=== PATIENT | female | born 1990 | race Caucasian/White ===

== ENCOUNTER 2017-08-02 17:00 | Emergency (ER) | payer BC, MEDICAID ==
[2017-08-02 17:17] VITALS: BP 159/91
[2017-08-02] MEDS ORDERED: Sodium Chloride 0.9% 1,000 ML IV SCH (17:45)
--- NOTE | 2017-08-02 17:52 | EDM.PDOC ---
ED HPI GENERAL MEDICAL PROBLEM - General Chief Complaint: General Stated Complaint: SENT BY CLINIC Time Seen by Provider: 08/02/17 17:30 Source of Information: Reports: Patient, Provider History Limitations: Reports: No Limitations - History of Present Illness INITIAL COMMENTS - FREE TEXT/NARRATIVE: 26-year-old female who is very anxious, dyspneic with intermittent chest pressure since delivering her baby one month ago. She's been seen at the clinic a couple of times and everything was felt to be fine, but a d-dimer was drawn today and was elevated at 500, so she was called and told to come to the emergency room to be evaluated for a PE. She is tearful, very anxious and scared. She has no chest pressure at this time. No cough, no hemoptysis. She just doesn't feel right. O2 saturations are 99%, she is tachycardic at 110. An EKG done at the clinic earlier today was normal, that will not be repeated. Onset: Unknown/Unsure Duration: Week(s): (Several weeks) Severity: Moderate Associated Symptoms: Reports: Shortness of Breath, Other (Mild intermittent chest pressure). 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 Denies: Cough Cardiovascular: Reports: Other (Mild intermittent chest pressure) GI/Abdominal: Denies: Nausea, Vomiting Skin: Reports: No Symptoms Psychiatric: Reports: Anxiety ED EXAM, GENERAL - Physical Exam Exam: See Below Exam Limited By: No Limitations General Appearance: Alert, Anxious, Mild Distress (Very tearful, very scared) Head: Atraumatic Neck: Normal Inspection Respiratory/Chest: No Respiratory Distress, Lungs Clear Cardiovascular: Regular Rate, Rhythm, Tachycardia. No: Extra Beats Extremities: No: Pedal Edema Neurological: Alert, Oriented Psychiatric: Anxious, Tearful Skin Exam: Warm, Dry Course - Vital Signs Last Recorded V/S: Last Vital Signs Temp 97.2 F 08/02/17 17:19 Pulse 110 H 08/02/17 17:19 Resp 16 08/02/17 17:19 BP 159/91 H 08/02/17 17:19 Pulse Ox 99 08/02/17 17:19 - Orders/Labs/Meds Orders: Active Orders 24 hr Category Date Time Status Ang Chest [CT] Stat Exams 08/02/17 17:34 Taken Meds: Medications Discontinued Medications Generic Name Dose Route Start Last Admin Trade Name Freq PRN Reason Stop Dose Admin Sodium Chloride 1,000 mls @ 1,000 mls/hr 08/02/17 17:45 08/02/17 17:56 Normal Saline IV 1,000 mls/hr ASDIRECTED TRAVIS Administration Sodium Chloride 100 mls @ 3.5 mls/sec 08/02/17 18:00 08/02/17 18:17 Normal Saline IV 3.5 mls/sec ASDIRECTED TRAVIS Administration Iopamidol 100 ml 08/02/17 18:00 08/02/17 18:17 Isovue-370 (76%) IV 100 ml . DIRECTED TRAVIS Administration - Re-Assessments/Exams Free Text/Narrative Re-Assessment/Exam: 08/02/17 17:51 Labs did not need to be repeated, recent creatinine and GFR were normal. An IV was started, patient was hydrated with 1 L of normal saline and a CT of her chest with IV contrast was obtained for reassurance. I could not convince her that the test will likely be normal, I think she needs this for reassurance. 08/02/17 18:44 CT angiogram was negative. Patient was reassured. Departure - Departure Time of Disposition: 19:17 Disposition: Home, Self-Care 01 Condition: Good Clinical Impression: Atypical chest pain, Anxiety about health - Discharge Information Instructions: Nonspecific Chest Pain Referrals: Liz Grullon NP [Primary Care Provider] - Forms: ED Department Discharge Care Plan Goals: Continue your current medications. Activity as tolerated. Return any time if worsening or concerns. - My Orders Last 24 Hours: My Active Orders 08/02/17 17:34 Ang Chest [CT] Stat - Assessment/Plan Last 24 Hours: My Active Orders 08/02/17 17:34 Ang Chest [CT] Stat
[2017-08-02] MEDS ORDERED: Sodium Chloride 0.9% 100 ML IV SCH (18:00)
[2017-08-02] MEDS ORDERED: Iopamidol 755 Mg/ML 100 ML Bottle IV SCH (18:00)
== END 2017-08-02 19:18 | disposition home or self-care (01) ==
LOC: JP.ED 17:00
DX: R07.89 Other chest pain (principal); F41.9 Anxiety disorder, unspecified; Z88.0 Allergy status to penicillin; Z91.040 Latex allergy status
CPT/HCPCS: 71275; 96360; 99285; J7030; J7040; Q9967

== ENCOUNTER 2019-10-26 00:04 | Emergency (ER) | payer BC, MEDICAID ==
[2019-10-26 00:28] VITALS: BP 128/87; PULSE 117
--- NOTE | 2019-10-26 00:36 | EDM.PDOC ---
ED HPI GENERAL MEDICAL PROBLEM - General Chief Complaint: ENT Problem Stated Complaint: RIGHT EAR INFECTION Time Seen by Provider: 10/26/19 00:31 Source of Information: Reports: Patient, RN Notes Reviewed History Limitations: Reports: No Limitations - History of Present Illness INITIAL COMMENTS - FREE TEXT/NARRATIVE: 28-year-old female presents emergency department today complaint of ear pain she states been going on for couple days she feels full no fevers no drainage Right Ear Pain Score (Numeric/FACES): 8 - Related Data Allergies Allergy/AdvReac Type Severity Reaction Status Date / Time Penicillins Allergy Unknown Cannot Verified 10/26/19 00:16 Remember Latex, Natural Rubber Allergy Rash Verified 10/26/19 00:16 Home Meds: Home Meds NK [No Known Home Meds] 10/26/19 [History] Past Medical History HEENT History: Reports: Allergic Rhinitis Genitourinary History: Reports: Pyelonephritis, UTI, Recurrent 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 Denies: Ear Discharge Respiratory: Reports: No Symptoms Cardiovascular: Reports: No Symptoms GI/Abdominal: Reports: No Symptoms ED EXAM, ENT - Physical Exam Exam: See Below Exam Limited By: No Limitations General Appearance: Alert, WD/WN, No Apparent Distress Eye Exam: Bilateral Eye: Normal Inspection Ears: Normal External Exam, Normal Canal, Hearing Grossly Normal, Normal TMs Nose: Normal Inspection, Normal Mucousa, No Blood Mouth/Throat: Normal Inspection, Normal Gums, Normal Lips, Normal Oropharynx, Normal Teeth Head: Atraumatic, Normocephalic Neck: Normal Inspection, Supple, Non-Tender, Full Range of Motion Respiratory/Chest: No Respiratory Distress, Lungs Clear, Normal Breath Sounds, No Accessory Muscle Use, Chest Non-Tender Cardiovascular: Regular Rate, Rhythm, No Murmur Course - Vital Signs Last Recorded V/S: Last Vital Signs Temp 98.6 F 01/30/20 00:24 Pulse 117 H 10/26/19 00:24 Resp 14 10/26/19 00:24 BP 128/87 10/26/19 00:24 Pulse Ox 97 10/26/19 00:24 Departure - Departure Time of Disposition: 00:36 Disposition: Home, Self-Care 01 Condition: Good Clinical Impression: Sinus congestion - Discharge Information Referrals: Liz Bobby MD [Primary Care Provider] - Additional Instructions: Try an antihistamine with a decongestant [id number], please followup with your primary care provider in 3-5 days if not better, please call return to the emergency department with worsening of symptoms. Sepsis Event Note - Evaluation Sepsis Screening Result: No Definite Risk - Focused Exam Vital Signs: Vital Signs Temp Pulse Resp BP Pulse Ox 10/26/19 00:24 98.6 F 117 H 14 128/87 97 Date Exam was Performed: 10/26/19 Time Exam was Performed: 00:34 - Assessment/Plan Plan: Assessment Acuity = acute Site and laterality = sinus congestion Etiology = probably due to recent illness Manifestations = none Location of injury = Home Lab values = none Plan Recommend antihistamine with a decongestant [id number] product follow-up primary care 3 to 5 days if not better This note was dictated using [employer] voice recognition software please call with any questions on syntax or grammar.
== END 2019-10-26 00:45 | disposition home or self-care (01) ==
LOC: JP.ED 00:04
DX: R09.81 Nasal congestion (principal); Z88.0 Allergy status to penicillin; Z91.040 Latex allergy status
CPT/HCPCS: 99282

== ENCOUNTER 2020-10-24 | Emergency (ER) | payer BC ==
--- NOTE | 2020-10-24 00:52 | EDM.PDOC ---
ED HPI GENERAL MEDICAL PROBLEM - General Chief Complaint: Genitourinary Problem Stated Complaint: KIDNEY INFECTION? Time Seen by Provider: 10/24/20 00:41 Source of Information: Reports: Patient, RN Notes Reviewed History Limitations: Reports: No Limitations - History of Present Illness INITIAL COMMENTS - FREE TEXT/NARRATIVE: 29-year-old female presents emergency department a complaint of burning with urination, she states that it started about 3 days prior she does have some low back pain she is not had any fevers no nausea vomiting shortness of breath does have a history of recurrent urinary tract infections - Related Data Allergies Allergy/AdvReac Type Severity Reaction Status Date / Time Penicillins Allergy Unknown Cannot Verified 10/24/20 00:06 Remember Latex, Natural Rubber Allergy Rash Verified 10/24/20 00:06 Home Meds: Home Meds NK [No Known Home Meds] 10/26/19 [History] Past Medical History HEENT History: Reports: Allergic Rhinitis Genitourinary History: Reports: Pyelonephritis, UTI, Recurrent 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: Neurological History: Reports: Headaches, Chronic Psychiatric History: Reports: Anxiety, Panic Attack - Infectious Disease History Infectious Disease History: Reports: Chicken Pox - Past Surgical History Head Surgeries/Procedures: Reports: None HEENT Surgical History: Reports: None Female Surgical History: Reports: None Neurological Surgical History: Reports: None Dermatological Surgical History: Reports: None Social & Family History - Tobacco Use Tobacco Use Status *Q: Never Tobacco User - Caffeine Use Caffeine Use: Reports: Coffee - Recreational Drug Use Recreational Drug Use: No ED ROS GENERAL - Review of Systems Review Of Systems: See Below Constitutional: Reports: No Symptoms Respiratory: Reports: No Symptoms Cardiovascular: Reports: No Symptoms GI/Abdominal: Reports: No Symptoms : Reports: Dysuria ED EXAM, RENAL/ - Physical Exam Exam: See Below Exam Limited By: No Limitations General Appearance: Alert, WD/WN, No Apparent Distress Respiratory/Chest: No Respiratory Distress GI/Abdominal: Soft, Non-Tender Back Exam: Normal Inspection, Full Range of Motion. No: CVA Tenderness (R), CVA Tenderness (L) Course - Vital Signs Last Recorded V/S: Last Vital Signs Temp 96.7 F L 10/24/20 00:09 Pulse 81 10/24/20 00:09 Resp 16 10/24/20 00:09 BP 148/89 H 10/24/20 00:09 Pulse Ox 100 10/24/20 00:09 - Orders/Labs/Meds Orders: Active Orders 24 hr Category Date Time Status CULTURE URINE [RM] Urgent Lab 10/24/20 00:42 Received Labs: Laboratory Tests 10/24/20 Range/Units 00:17 Urine Color Yellow (YELLOW) Urine Appearance Slightly cloudy A (CLEAR) Urine pH 6.5 (5.0-8.0) Ur Specific [place] 1.010 (1.008-1.030) Urine Protein Negative (NEGATIVE) mg/dL Urine Glucose (UA) Negative (NEGATIVE) mg/dL Urine Ketones Negative (NEGATIVE) mg/dL Urine Occult Blood Small H (NEGATIVE) Urine Nitrite Negative (NEGATIVE) Urine Bilirubin Negative (NEGATIVE) Urine Urobilinogen 0.2 (0.2-1.0) EU/dL Ur Leukocyte Esterase Small H (NEGATIVE) Urine RBC 0-5 (0-5) Urine WBC 5-10 H (0-5) Ur Epithelial Cells Rare Amorphous Sediment Not seen Urine Bacteria Few Urine Mucus Not seen Departure - Departure Time of Disposition: 00:52 Disposition: Home, Self-Care 01 Condition: Fair Clinical Impression: UTI, Urinary tract infectious disease - Discharge Information Instructions: Urinary Tract Infection, Adult Referrals: Liz Bobby MD [Primary Care Provider] - Additional Instructions: Take full course of antibiotics, please followup with your primary care provider in 3-5 days if not better, please call return to the emergency department with worsening of symptoms. Sepsis Event Note (ED) - Evaluation Sepsis Screening Result: No Definite Risk - Focused Exam Vital Signs: Vital Signs Temp Pulse Resp BP Pulse Ox 10/24/20 00:09 96.7 F L 81 16 148/89 H 100 10/24/20 00:08 96.7 F L 81 16 148/89 H 100 - My Orders Last 24 Hours: My Active Orders 10/24/20 00:42 CULTURE URINE [RM] Urgent - Assessment/Plan Last 24 Hours: My Active Orders 10/24/20 00:42 CULTURE URINE [RM] Urgent Plan: Assessment Acuity = acute Site and laterality = urinary tract infection Etiology = probable bacteria Manifestations = dysuria Location of injury = Home Lab values = 5-10 WBCs consistent with pyuria no hematuria is noted few bacteria small leukocyte esterase cultures pending Plan Because of the back pain elected to treat with a longer course of Bactrim DS one tab p.o. twice daily x7 days follow-up primary care 3 to 5 days if not better culture should be available at that time This note was dictated using [employer] voice recognition software please call with any questions on syntax or grammar.
[2020-10-24 03:57] VITALS: BP 148/89; PULSE 81
== END 2020-10-24 00:57 | disposition home or self-care (01) ==
LOC: JP.ED
DX: N39.0 Urinary tract infection, site not specified (principal); Z91.040 Latex allergy status; Z88.0 Allergy status to penicillin
CPT/HCPCS: 81001; 87086; 87088; 87186; 99283

== ENCOUNTER 2022-01-14 18:46 | Emergency (ER) | payer MEDICAID ==
[2022-01-14 20:04] VITALS: BP 129/95; PULSE 128
== END 2022-01-14 20:37 | disposition home or self-care (01) ==
LOC: JP.ED 18:46
DX: R07.89 Other chest pain (principal); F41.9 Anxiety disorder, unspecified; R00.0 Tachycardia, unspecified; Z88.0 Allergy status to penicillin; Z91.040 Latex allergy status
CPT/HCPCS: 36415; 80048; 84443; 84484; 85025; 85379; 85651; 93010; 99283; 99285-25

== ENCOUNTER 2023-05-27 06:30 | Day surgery (SDC) | payer MEDICAID ==
[2023-05-27] MEDS ORDERED: Sodium Tetradecyl Sulfate 1% 20 MG/2 ML SDV ONE (06:47)
[2023-05-27] MEDS ORDERED: Lidocaine 1% with EPINEPHrine 1:100,000 50 ML MDV ONE (06:48)
[2023-05-27] MEDS ORDERED: Sodium Chloride 0.9% 10 ML ONE (06:48)
[2023-05-27] MEDS ORDERED: Sodium Chloride 0.9% 1,000 ML IV SCH (07:00)
[2023-05-27] MEDS ORDERED: fentaNYL 100 MCG/2 ML SDV ONE (07:03)
[2023-05-27] MEDS ORDERED: Midazolam 1 MG/ML 2 ML SDV ONE (07:03)
[2023-05-27] MEDS ORDERED: Propofol 200 MG/20 ML SDV ONE ×4 (07:03→08:30)
[2023-05-27] MEDS: Lidocaine 1% w/EPINEPHrine 50 ML, Sodium Bicarbonate 5 MEQ in Sodium Chloride 0.9% 950 ML INJECT SCH ×2 (08:10→08:29)
[2023-05-27] MEDS ORDERED: Lactated Ringers 1,000 ML ONE (08:15)
[2023-05-27 09:56] VITALS: BP 125/74; PULSE 85
== END 2023-05-27 09:57 | disposition home or self-care (01) ==
LOC: JP.SDS 06:30
PROVIDERS: ATTEND Surgery
DX: I87.2 Venous insufficiency (chronic) (peripheral) (principal); Z86.73 Personal history of transient ischemic attack (TIA), and cerebral infarction without residual deficits; Z88.0 Allergy status to penicillin; Z88.1 Allergy status to other antibiotic agents; Z91.040 Latex allergy status
CPT/HCPCS: 36470; 36475; 81025; J1642; J2250; J2704; J3010; J3490; J7030; J7120